=== PATIENT | female | born 1995 | race Caucasian/White ===

== ENCOUNTER 2019-05-03 06:56 | Outpatient (CLI) | payer OTHER | END 2019-05-03 17:17 | disposition home or self-care (01) | LOC: OBS/DEL 06:56 | DX: O26.892 Other specified pregnancy related conditions, second trimester (principal); J06.9 Acute upper respiratory infection, unspecified ==

== ENCOUNTER 2019-09-07 11:15 | Inpatient (IN) | payer OTHER ==
[~2019-09-07] VITALS: Ht 157.5 cm; Wt 89.4 kg
[2019-09-07] MEDS ORDERED: SYNTHROID50 MCG PO (13:54)
== END 2019-09-09 14:22 | disposition home or self-care (01) | DRG 807 ==
LOC: LDR 11:15 → OB/GYN 15:00
PROVIDERS: ADMIT Obstetrics & Gynecology
PROC: 10E0XZZ Delivery of Products of Conception, External Approach (ICD-10-PCS; principal; 2019-09-07)
PROC: 0HQ9XZZ Repair Perineum Skin, External Approach (ICD-10-PCS; 2019-09-07)
PROC: 4A1HXCZ Monitoring of Products of Conception, Cardiac Rate, External Approach (ICD-10-PCS; 2019-09-07)
DX: O70.0 First degree perineal laceration during delivery (principal); Z37.0 Single live birth; Z3A.38 38 weeks gestation of pregnancy